=== PATIENT | male | born 1990 | race Caucasian/White ===

== ENCOUNTER 2020-03-09 15:22 | Emergency (ER) | payer SELFPAY ==
--- NOTE | 2020-03-09 15:49 | EDM.PDOC ---
<Alana Godoy - Last Filed: 03/09/20 15:44> ED HPI GENERAL MEDICAL PROBLEM - General Chief Complaint: Skin Complaint Stated Complaint: THINKS HE HAS AN INFECTION Time Seen by Provider: 03/09/20 15:31 Source of Information: Reports: Patient History Limitations: Reports: No Limitations - History of Present Illness INITIAL COMMENTS - FREE TEXT/NARRATIVE: Gaston is a 29 year old male presenting to the ED today with complaints of an abscess on the medial epicondylar area of his left extremity. He states he injected Morphine a few days ago and and he noticed it getting red and hot on Monday afternoon. He is a current IV meth user, but states he has never gotten an infection from using meth. He states he has been using meth for a decade, but this was his first time shooting morphine. He complains of chills and lethargy today, but denies fever or any further systemic symptoms. Left Arm Pain Score (Numeric/FACES): 7 - Related Data Allergies Allergy/AdvReac Type Severity Reaction Status Date / Time No Known Allergies Allergy Verified 03/09/20 15:33 Home Meds: Home Meds Doxycycline [Vibra-Tabs] 100 mg PO Q12HR #20 tab 03/09/20 [Rx] Hydrocodone/Acetaminophen [Hydrocodone-Acetamin 5-325 mg] 1 - 2 each PO Q6HR PRN #6 tablet 03/09/20 [Rx] Past Medical History - Past Health History Medical/Surgical History: Denies Medical/Surgical History HEENT History: Reports: Other (See Below) Other HEENT History: "dental issues" Social & Family History - Tobacco Use Tobacco Use Status *Q: Current Every Day Tobacco User Years of Tobacco use: 10 Packs/Tins Daily: 0.5 - Recreational Drug Use Recreational Drug Use: Yes Drug Use in Last 12 Months: Yes Recreational Drug Type: Reports: Methamphetamine ED ROS GENERAL - Review of Systems Constitutional: Reports: Chills, Other (Lethargy). Denies: Fever HEENT: Reports: No Symptoms Respiratory: Reports: No Symptoms Cardiovascular: Reports: No Symptoms Endocrine: Reports: No Symptoms GI/Abdominal: Reports: No Symptoms : Reports: No Symptoms Musculoskeletal: Reports: No Symptoms Skin: Reports: Erythema, Lumps (Patient believes he has an infection due to shooting up Morphine for the first time. He believes it is an abscess.) Neurological: Reports: No Symptoms. Denies: Numbness, Paresthesia, Tingling Psychiatric: Reports: No Symptoms Hematologic/Lymphatic: Reports: No Symptoms Immunologic: Reports: No Symptoms ED EXAM, SKIN/RASH Exam Limited By: No Limitations General Appearance: Alert, No Apparent Distress, Thin Head: Atraumatic, Normocephalic Neck: Normal Inspection, Supple, Non-Tender, Full Range of Motion Respiratory/Chest: No Respiratory Distress, Lungs Clear, Normal Breath Sounds, No Accessory Muscle Use, Chest Non-Tender Cardiovascular: Normal Peripheral Pulses, Regular Rate, Rhythm, No Edema, No Gallop, No JVD, No Murmur, No Rub GI/Abdominal: Normal Bowel Sounds, Soft, Non-Tender, No Organomegaly, No Distention, No Abnormal Bruit, No Mass Back Exam: Normal Inspection, Full Range of Motion, NT Extremities: Normal Inspection, Normal Range of Motion, Non-Tender, No Pedal Edema, Normal Capillary Refill Neurological: Alert, Oriented, CN II-XII Intact, Normal Cognition, Normal Gait, Normal Reflexes, No Motor/Sensory Deficits Psychiatric: Normal Affect, Normal Mood Skin: Increased Warmth Location, Skin: Upper Extremity, Left (Abscess on the medial epicondylar region of patient's left upper extremity. It is extremely tender to palpate. Patient has significant erythema and warmth distal to abscess and ends roughly at midforearm. ) Characteristics: Erythematous Associated features: Warmth, Tenderness, Swelling, Inflammation Lymphatic: No Adenopathy Course - Re-Assessments/Exams Free Text/Narrative Re-Assessment/Exam: 03/09/20 15:55 Gaston is a 29 year old male presenting to the ED with complaints of an abscess on his medial epicondylar area on his left upper extremity. This occurred secon [place] to injection of Morphine. He is a current IV meth user but denies abscess formation in the past. His left forearm is erythematous and warm indicating cellulitis. We will I&D the abscess and start on antibiotics. Departure - Departure Disposition: Home, Self-Care 01 Clinical Impression: Abscess - Discharge Information Prescriptions: Hydrocodone/Acetaminophen [Hydrocodone-Acetamin 5-325 mg] 1 - 2 each PO Q6HR PRN #6 tablet PRN Reason: Pain Doxycycline [Vibra-Tabs] 100 mg PO Q12HR #20 tab Referrals: PCP,None [Primary Care Provider] - Susanne Ibarra, SAFETY INVESTIGATOR [Nurse Practitioner] - 1 Week Forms: ED Department Discharge Additional Instructions: Clean your arm 2 times per day with warm soapy water. Put warm compresses on the affected area 3 times per day for 5 days. Take the doxycycline 2 times per day for 10 days. Take tylenol or motrin for pain. If that does not help, try the hydrocodone. Follow up with Susanne Ibarra within a week. Try to leave the packing in for 5 days. Please return if you are worse. Sepsis Event Note (ED) - Evaluation Sepsis Screening Result: No Definite Risk <Greg Loredo - Last Filed: 03/09/20 17:10> ED ROS GENERAL - Review of Systems Review Of Systems: See Below ED EXAM, SKIN/RASH Exam: See Below ED SKIN PROCEDURES - I&D Site: left arm AC Skin Prep: Other (Chlor prep) Local Anesthesia: Lidocaine: 1% with EPI (with LET) Area Incised With: 11 Blade Drainage: Purulent, Bloody, Large Amount Probed to Break Up Loculations: Yes Packed With: 1 in. Iodoform Complications: No Course - Vital Signs Last Recorded V/S: Last Vital Signs Temp 99.8 F 03/09/20 15:29 Pulse 130 H 03/09/20 15:29 Resp 16 03/09/20 15:29 BP 145/102 H 03/09/20 15:29 Pulse Ox 98 03/09/20 15:29 - Orders/Labs/Meds Meds: Medications Discontinued Medications Generic Name Dose Route Start Last Admin Trade Name Quynh PRN Reason Stop Dose Admin Lidocaine HCl 10 ml 03/09/20 15:52 03/09/20 15:58 Xylocaine 1% INJECT 03/09/20 15:53 10 ml ONETIME ONE Administration Lidocaine/Tetracaine 1 ml 03/09/20 15:52 03/09/20 15:58 Let Soln TOP 03/09/20 15:53 1 ml ONETIME ONE Administration - Re-Assessments/Exams Free Text/Narrative Re-Assessment/Exam: 03/09/20 16:48 I examined the patient myself and I agree with Alana's assessment and plan. We I & D the abscess. I will get him on some doxycycline and something for pain. Departure - Departure Time of Disposition: 17:10 Condition: Good - Discharge Information *PRESCRIPTION DRUG MONITORING PROGRAM REVIEWED*: No *COPY OF PRESCRIPTION DRUG MONITORING REPORT IN PATIENT MAYNOR: No Sepsis Event Note (ED) - Focused Exam Vital Signs: Vital Signs Temp Pulse Resp BP Pulse Ox 03/09/20 15:29 99.8 F 130 H 16 145/102 H 98
[2020-03-09] MEDS ORDERED: Lidocaine 1% 10 ML MDV INJECT ONE (15:52)
[2020-03-09] MEDS ORDERED: Lidocaine/EPINEPHrine/Tetracaine Soln 1 ML TOP ONE (15:52)
== END 2020-03-09 17:22 | disposition home or self-care (01) ==
LOC: JD.ED 15:22
DX: L02.414 Cutaneous abscess of left upper limb (principal); Z72.0 Tobacco use
CPT/HCPCS: 10061; 87075; 87205; 99283; J2001; 87076; 87077; 87181; 87184

== ENCOUNTER 2021-07-04 07:55 | Emergency (ER) | payer SELFPAY ==
[2021-07-04] MEDS ORDERED: cefTRIAXone 2 GM in Sodium Chloride 0.9% 100 ML IV ONE (08:13)
[2021-07-04] MEDS ORDERED: Sodium Chloride 0.9% 10 ML Syringe FLUSH PRN (08:14)
[2021-07-04] MEDS ORDERED: Ketorolac 30 MG/ML SDV IVPUSH SCH (08:15)
== END 2021-07-04 09:17 | disposition home or self-care (01) ==
LOC: JD.ED 07:55
DX: K04.7 Periapical abscess without sinus (principal); L03.211 Cellulitis of face; F17.210 Nicotine dependence, cigarettes, uncomplicated
CPT/HCPCS: 96365; 96375; 99283; J0696; J1885; J3490